=== PATIENT | male | born 1965 | race Caucasian/White ===

== ENCOUNTER 2020-03-26 11:04 | Emergency (ER) | payer SELFPAY ==
[2020-03-26 11:18] VITALS: BP 107/80; PULSE 90; RESP 14; TEMP 37; O2SAT 100; BMI 33.2
--- NOTE | 2020-03-26 11:33 | XR_ITS ---
WS: [id number] EXAM: AP CHEST: PORTABLE UPRIGHT DATE OF EXAM: 03/26/2020, 1156 hour COMPARISON: NONE HISTORY: Patient is 55 years old with chronic shortness of breath. Slight cough with chest tightness. FINDINGS: The cardiac silhouette is normal in size. The mediastinal contours are normal. The pulmonary vas cularity is normal. Chronic lung changes seen. Calcified granulomas demonstrated bilaterally. Lungs are clear of consolidation. There is no effusion or pneumothorax. Scattered degenerative changes in the spine. Old postop fusion changes lower cervical spine. Old fracture deformity involving the righ t clavicle. Small retrocardiac hiatal hernia. XR/XR chest 1V portable 17707 IMPRESSION: No acute pulmonary disease. Small retrocardiac hiatal hernia.
--- NOTE | 2020-03-26 11:34 | ED_ITS ---
HPI - General Adult General: Chief complaint: Shortness of Breath/Dyspnea Stated complaint: SOB Time Seen by Provider: 03/26/20 11:25 History of Present Illness: HPI narrative: Patient complains about increasing shortness of breath over the last couple months an episode yesterday where he got really short of breath after loading a lawnmower on a trailer. Patient patient takes Lasix takes high blood pressure medicine has history of lower leg swelling. Patient says his leg swelled really bad if he goes on a trip and has to sit for long period of time denies chest pain denies fever chills nausea or vomiting. Onset (ago): month(s) Exacerbating factors: movement Associated symptoms: Deny chest pain, dyspnea, headache(s), nausea, rash or vo miting Review of Systems Const: Denies: fever(s), chills or body aches Eyes: Denies: change in vision or blurry vision ENMT: Denies: throat pain or nasal congestion Card: Reports: swelling of feet/ankles and dyspnea on exertion; Denies: chest pain Resp: Denies: dyspnea, productive cough or non-productive cough GI: Denies: abdominal pain, nausea or vomiting : Denies: difficulty urinating Musc: Denies: extremity pain Skin/Breast: Denies: rash Neuro: Denies: headache(s) Psych: Denies: anxiety or depression Fernie/Lymph: Denies: easy bruising Physical Exam Const: COMMON NORMALS: no acute distress, average body habitus and patient oriented x3 HENMT: COMMON NORMALS: normocephalic HEAD & SCALP: normal to inspection and normocephalic FACE & SINUS: normal facial exam Eye: COMMON NORMALS: conjunctivae normal GENERAL EYE: appearance normal, both eyes and all related structures CONJUNCTIVA: Yes conjunctivae normal Neck/C-Spine: COMMON NORMALS: no JVD Chest: COMMONS NORMALS: normal inspection of the chest Resp: COMMON NORMALS: normal respiratory effort and clear to auscultation bilaterally AUSCULTATION: clear to auscultation bilaterally Cardio: COMMON NORMALS: no JVD, regular rate and regular rhythm RATE: regular rate RHYTHM: regular rhythm GI: COMMON NORMALS: Normal to inspection, nondistended, normoactive bowel sounds present Extremity: COMMON NORMALS: normal to inspection and full ROM Neuro: COMMON NORMALS: patient oriented x3 Course Vital Signs: Vital signs: Vital Signs Temperature 98.6 F 03/26/20 11:18 Pulse Rate 75 03/26/20 13:27 Respiratory Rate 15 03/26/20 13:27 Blood Pressure 142/88 03/26/20 13:27 Pulse Oximetry 100 03/26/20 11:18 MDM - General Adult MDM Narrative: Medical decision making narrative: 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 Discussed need for patient to follow-up for cardiac stress test most likely since she is having exertional dyspnea patient agrees with plan advised patient to take baby aspirin daily and follow-up with local provider this week Lab Data: Labs: Lab Results 03/26/20 03/26/20 03/26/20 Range/Units 11:47 11:47 11:47 WBC 6.9 (4.0-10.0) 10^3/ uL RBC 4.17 (4.1-5.3) 10^6/u L Hgb 11.1 L (11.7-16.6) g/dL Hct 36.0 L (42.0-52.0) % MCV 86.3 (80-94) fL MCH 26.6 L (28.0-34.0) pg MCHC 30.8 (30.0-36.0) g/dL RDW 13.3 (12.1-15.1) % Plt Count 347 (130-400) 10^3/c mm MPV 10.6 H (7.4-10.4) fL Neut % (Auto) 62.7 % Lymph % (Auto) 24.9 % Stark % (Auto) 8.5 % Eos % (Auto) 1.7 % Baso % (Auto) 0.6 % Neut # (Auto) 4.34 (1.8-7.7) 10^3/u L Lymph # (Auto) 1.7 (0.8-4.8) 10^3/u L Stark # (Auto) 0.6 (0.2-0.9) 10^3/u L Eos # (Auto) 0.1 (0.0-0.8) 10^3/u L Baso # (Auto) 0.0 (0.0-0.1) 10^3/u L Nucleated RBC % (a uto) 0 % Nucleated RBCs # 0.0 /100WBC Sodium 136 (136-145) mmol/L Potassium 4.4 (3.5-5.1) mmol/L Chloride 101 (98-107) mmol/L Carbon Dioxide 26 (22-29) mmol/L Anion Gap 13.4 (5-19) BUN 24 H (6-20) mg/dL Creatinine 1.0 (0.7-1.2) mg/dL GFR Calculation 77.3 L (90-130) mL/min Glucose 92 (65-115) mg/dL Calculated Osmolal ity 278 L (285-295) mOsm/k g Calcium 8.7 (8.5-10.5) mg/dL Total Bilirubin 0.2 (0.15-1.2) mg/dL AST 18 (0-40) U/L ALT 18 (0-41) U/L Alkaline Phosphata se 110 (40-130) IU/L Troponin T Gen 5 n g/L 7 (0-15) ng/L NT-Pro-B Natriuret Pep 5 (0-125) pg/mL Total Protein 7.0 (6.6-8.7) g/dL Albumin 4.3 (3.5-5.2) g/dL Globulin 2.7 (1.3-4.6) g/dL Discharge Plan Discharge Patient Disposition: Home Clinical Impression: Exertional dyspnea Condition: Stable Prescriptions: No Action ropinirole 1 mg Tablet 1 mg PO BEDTIME RF: 0 valsartan 80 mg Tablet 80 mg PO DAILY RF: 0 omeprazole 40 mg Capsule,Delayed Release(Dr/Ec) 40 mg PO BID RF: 0 Flomax 0.4 mg Capsule 0.4 mg PO DAILY RF: 0 Remeron 30 mg Tablet 30 mg PO BEDTIME RF: 0 diclofenac sodium 75 mg Tablet,Delayed Release (Dr/Ec) 75 mg PO BID PRN (Reason: Pain) RF: 0 Lasix 20 mg Tablet 20 mg PO DAILY RF: 0 losartan 100 mg Tablet 100 mg PO DAILY RF: 0 Wellbutrin XL 150 mg Tablet Extended Release 24 Hr 150 mg PO QAM RF: 0 Cymbalta 60 mg Capsule,Delayed Release(Dr/Ec) 60 mg PO BID RF: 0 testosterone cypionate 200 mg/mL Kit 200 mg IM Q30D RF: 0 Discharge Orders: Discharge Order (Routine); Ordered 03/26/20 Ordered By: Sebastien Martínez Discharge Diet: Usual diet Discharge Activity: Limit activity as instructed Patient Instructions: Dyspnea (ED) Activity Restrictions/Additional Instructions: Follow-up with primary care provider of your choice he can see like Dr. Viet Benitez in [place] at the [facility]. Her follow-up Dr. Perkins in [facility]. I recommend that you get a cardiac stress test done. I recommend taking a baby aspirin daily. Discharge Date/Time: 03/26/20 13:30 Coding Level of Care Code ED Affiliate Marketing Specialist for Chg Fwd Exam Comprehensive
[2020-03-26 12:10] LABS: Basophils % 0.6 %; Eosinophils # 0.1 10^3/uL (0.0-0.8); Eosinophils % 1.7 %; Hemoglobin 11.1 g/dL (11.7-16.6); Lymphocytes # 1.7 10^3/uL (0.8-4.8); Lymphocytes % 24.9 %; Mean Corpuscular HGB Conc 30.8 g/dL (30.0-36.0); Mean Corpuscular Hemoglobin 26.6 pg (28.0-34.0); Mean Corpuscular Volume 86.3 fL (80-94); Mean Platelet Volume 10.6 fL (7.4-10.4); Monocytes # 0.6 10^3/uL (0.2-0.9); Monocytes % 8.5 %; Neutrophils # 4.34 10^3/uL (1.8-7.7); Neutrophils % 62.7 %; Nucleated Red Blood Cells % 0 %; Platelet Count 347 10^3/cmm (130-400); Red Blood Count 4.17 10^6/uL (4.1-5.3); Red Cell Distribution Width 13.3 % (12.1-15.1); White Blood Count 6.9 10^3/uL (4.0-10.0)
[2020-03-26 12:23] LABS: Troponin T (5th) Once 7 ng/L (0-15)
[2020-03-26 12:31] LABS: Alanine Aminotransferase 18 U/L (0-41); Albumin Level 4.3 g/dL (3.5-5.2); Alkaline Phosphatase 110 IU/L (40-130); Anion Gap 13.4 (5-19); Aspartate Amino Transferase 18 U/L (0-40); Blood Urea Nitrogen 24 mg/dL (6-20); Calcium 8.7 mg/dL (8.5-10.5); Carbon Dioxide 26 mmol/L (22-29); Chloride 101 mmol/L (98-107); Globulin 2.7 g/dL (1.3-4.6); Glomerular Filtration Rate 77.3 mL/min (90-130); Glucose 92 mg/dL (65-115); NT Pro B Type Natriuretic Pept 5 pg/mL (0-125); Osmolality Calculated 278 mOsm/kg (285-295); Potassium 4.4 mmol/L (3.5-5.1); Sodium 136 mmol/L (136-145); Total Bilirubin 0.2 mg/dL (0.15-1.2)
[2020-03-26 13:27] VITALS: BP 142/88; PULSE 75; RESP 15
--- NOTE | 2020-03-26 13:37 | ECG_ITS ---
[facility] Test Date: 2020-03-26 Pat Name: Clemente Irwin Department: Room: Gender: Male Insurance Agent: juan antonio : 1965 Requested By: Sebastien Martínez Order Number: [id number] MD: Montrell Choe M.D. Measurements Intervals [place] Rate: 83 P: 16 VA: 167 QRS: 1 QRSD: 85 T: 64 QT: 360 QTc: 425 Interpretive Statements SINUS RHYTHM No previous ECG available for comparison Electronically Signed On 03-26-2020 20:52:18 CDT by Montrell Choe M.D. [email or web address] [employer] Co[id number]
[2020-03-27 00:03] LABS: D Dimer 0.47 ug/mIFEU (0-0.59)
== END 2020-03-26 13:30 | disposition home or self-care (01) ==
PROVIDERS: Emergency Provider Nurse Practitioner Family
DX: R06.09 Other forms of dyspnea (principal)
CPT/HCPCS: 12345; 36415; 71045; 80053; 83880; 84484; 85025; 85378; 93005; 99283